=== PATIENT | male | born 1985 | race Caucasian/White ===

== ENCOUNTER 2017-09-30 10:22 | Emergency (ER) | payer MEDICAID ==
--- NOTE | 2017-09-30 10:37 | ED Physician Chart ---
ED Chief Complaint/HPI - Patient Information Date Seen:: 09/30/17 Time Seen:: 10:36 Chief Complaint:: TOOTH ACHE X 3 DAYS History of Present Illness:: THIS 32 YEAR OLD MALE PRESENTS WITH A 2 TO 3 DAY HISTORY OF PAINFUL SWOLLEN TOOTH NUMBER 19 ON THE LOWER LEFT SIDE. HAS ASSOCIATED SWELLING BETWEEN THE BASE OF THE TOOTH AND THE CHEEK. PAIN IS 10/10 AND DULL ACHE. NO RELIEF FROM EITHER PO ACETAMINOPHEN OR IBUPROFEN. NO ASSOCIATED FEVER OR CHILLS. THE INVOLVED TOOTH HAS A CHIP OUT OF IT. POSITIVE NAUSEA WITHOUT VOMITING. NO OTHER COMPLAINTS. Allergies:: Allergies Allergy/AdvReac Type Severity Reaction Status Date / Time No Known Allergies Allergy Verified 09/30/17 10:30 Vitals:: Vital Signs - 8 hr 09/30/17 10:30 Temp 98.5 F HR 64 RR 17 BP 153/88 O2 Sat % 99 ED Review of Systems - Review of Systems General/Constitutional: No fever, No chills, No weakness, No diaphoresis, Loss of appetite Skin: No skin lesions, No rash, No bruising Head: No headache Eyes: Diplopia, No diplopia ENT: No earache, No sore throat, Other (DENTAL PAIN) Neck: No neck pain, No swelling, No stiffness, No mass noted Cardio Vascular: No chest pain, No orthopnea Pulmonary: No SOB, No cough, No sputum, No wheezing GI: Nausea, No vomiting, No diarrhea, No pain G/U: No dysuria, No frequency, No hematuria Musculoskeletal: No bone or joint pain, No back pain, No muscle pain Psychiatric: No prior psych history, No depression, No suicidal ideation Hematopoietic: No bruising, No lymphadenopathy Allergic/Immuno: No urticaria, No angioedema Neurological: No syncope, No focal symptoms, No weakness, No paresthesia, No headache, No seizure, No dizziness, No confusion ED Past Medical History - Past Medical History Past Medical History: No significant medical hx Family History: Heart disease Social History: Smoker (1 PACK EVERY 2 - 3 DAYS. 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 Family Medical History - Family Member Mother Hx Family Cancer: No Hx Family Coronary Artery Disease: No Hx Family Congestive Heart Failure: No Hx Family Hypertension: No Hx Family Diabetes: No Hx Family Seizures: No Hx Family Dementia: No Hx Family AIDS: No Hx Family HIV: No Hx Family COPD: No Hx Family Psychiatric Problems: No ED Physical Exam - Physical Examination General/Constitutional: Awake, Well-developed, well-nourished, Alert, Non-toxic appearing, Ambulatory Other Gen/Cons comments:: MODERATE DISTRESS FROM COMPLAINED OF DENTAL PAIN. Head: Atraumatic Eyes: Lids, conjuctiva normal, PERRL, EOMI Skin: No ecchymosis, Well hydrated, No lymphadenopathy Other Skin comments:: MILD ACNE RASH OVER BACK. STRETCH BILL OVER ABDOMEN. ENMT: External ears, nose nl, Nasal exam nl Other ENMT comments:: MULTIPLE TEETH WITH DENTAL CARRIES AND CRACKS. Neck: Nontender, Full ROM w/o pain, No JVD, No nuchal rigidity, No mass Respiratory: Nl effort/Exclusion, No Wheeze/Rhonchi/Rales Cardio Vascular: RRR, No murmur, gallop, rubs, NL S1 S2 GI: No tenderness/rebounding/guarding, No hernia, No McBurney tenderness Other GI comments:: Liver is approximately 4 cm below the costal margin. : No CVA tenderness Extremities: No tenderness or effusion, Full ROM, normal strength in all extremities, No edema Neuro/Psych: Alert/oriented, Normal sensory exam, Normal motor strength, Judgement/insight normal, Mood normal, Normal gait, No focal deficits Misc: Normal back, No paraspinal tenderness Other Misc comments:: No spinal tenderness. ED Labs/Radiology/EKG Results - Lab Results Results: NO LAB OR RADIOLOGY STUDIES INDICATED. ED Assessment - Assessment General Assessment: CASE SUMMARY: This 32-year-old male presents with a three-day history of pain in the left #19 tooth with associated swelling at the base of the tooth and between the gingiva and the cheek. He has had no associated fever or chills. He has multiple episodes of similar dental problems in the past and has had teeth pulled 4. He denies any other significant medical problems. On physical examination there was swelling at the base of tooth #19 and the tooth was broken. No associated lymphadenopathy in the neck. The patient's pain was addressed with an IM injection of 10 mg morphine. Nausea was addressed with an oral tablet of Zofran. The patient was discharged with a diagnosis of dental abscess. He was given a prescription for cephalexin to be taken 500 mg 4 times a day for one week. He was also given a prescription for [place] 10/325, dispense 10, use warm up to every 6 hours as needed for severe pain. He was given the usual precautions regarding not mixing it with alcohol and not taking it within [address] or any activities requiring alertness. He was given a referral for [place] dental follow-up. He was advised to return to the emergency department for any significant worsening of symptoms. MDM DDX FOR DENTAL PAIN. NOT TRAUMATIC DENTAL FRACTURE. NOT MANDIBULAR FRACTURE BASED ON HX AND EXAM. NOT SEPARATIVE GINGIVITIS based on the patient's history and examination. ED Septic Shock - . Is Septic Shock (SBP<90, OR Lactate>4 mmol\L) present?: No - <6hrs of presentation: Vital Signs: Vital Signs - 8 hr 09/30/17 10:30 Temp 98.5 F HR 64 RR 17 BP 153/88 O2 Sat % 99 ED Reassessment (Disposition) - Reassessment Reassessment Condition:: Improved - Diagnosis Diagnosis:: DENTAL ABSCESS, ENLARGED LIVER. - Aftercare/Follow up Instructions Aftercare/Follow-Up Instructions:: Refer to Discharge Instructions - Patient Disposition Discharge/Transfer:: Home ED Discharge Plan - Patient Disposition Instructions: Dental Pain
[2017-09-30] MEDS ORDERED: Morphine Sulfate 4 mg/mL 1mL Syr IM ONE (10:53)
== END 2017-09-30 11:15 | disposition home or self-care (01) ==
LOC: ER 10:22
DX: K04.7 Periapical abscess without sinus (principal); F17.210 Nicotine dependence, cigarettes, uncomplicated
CPT/HCPCS: 99283; 96372; Q0162; J2270; Z7502